=== PATIENT | male | born 1980 | race Hispanic/Latino ===

== ENCOUNTER 2023-12-31 16:07 | Emergency (ER) | payer SELFPAY ==
--- NOTE | 2023-12-31 17:58 | RAD REPORT ---
EXAM DESCRIPTION: RAD - Humerus Left - 12/31/2023 5:50 pm CLINICAL HISTORY: PAIN COMPARISON: <Comparisons> FINDINGS: No acute fracture or dislocation seen.
--- NOTE | 2023-12-31 17:59 | RAD REPORT ---
EXAM DESCRIPTION: RAD - Forearm Left - 12/31/2023 5:50 pm CLINICAL HISTORY: PAIN COMPARISON: <Comparisons> FINDINGS: Moderate soft tissue swelling is seen involving the forearm. No fracture or dislocation se en.
--- NOTE | 2023-12-31 17:59 | RAD REPORT ---
EXAM DESCRIPTION: RAD - Foot Right 3 View - 12/31/2023 5:50 pm CLINICAL HISTORY: PAIN COMPARISON: <Comparisons> FINDINGS: No acute fracture or dislocation seen. Moderate calcaneal spurs.
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
[2023-12-31] MEDS ORDERED: HYDROCODONE/APAP 10/325 TAB ONE (18:16)
[2023-12-31 19:06] VITALS: BP 133/79; TEMP 98.2; O2SAT 99
== END 2023-12-31 18:45 | disposition home or self-care (01) ==
LOC: ER 16:07
DX: S40.812A Abrasion of left upper arm, initial encounter (principal); S20.411A Abrasion of right back wall of thorax, initial encounter; S50.12XA Contusion of left forearm, initial encounter; S40.022A Contusion of left upper arm, initial encounter; M79.671 Pain in right foot; V09.09XA Pedestrian injured in nontraffic accident involving other motor vehicles, initial encounter
CPT/HCPCS: 71045; 99284